=== PATIENT | female | born 1990 | race Caucasian/White ===

== ENCOUNTER 2019-06-11 11:14 | Outpatient (CLI) | payer OTHER | END 2019-06-11 23:59 | disposition home or self-care (01) | LOC: LAB 11:14 | PROVIDERS: ATTEND Obstetrics & Gynecology | DX: N93.9 Abnormal uterine and vaginal bleeding, unspecified (principal) | CPT/HCPCS: 36415; 84702 ==

== ENCOUNTER 2019-06-13 11:45 | Outpatient (CLI) | payer OTHER | END 2019-06-13 23:59 | disposition home or self-care (01) | LOC: LAB 11:45 | PROVIDERS: ATTEND Obstetrics & Gynecology | DX: N93.9 Abnormal uterine and vaginal bleeding, unspecified (principal) | CPT/HCPCS: 36415; 84702 ==

== ENCOUNTER → 2019-10-18 | Outpatient (CLI) | payer OTHER ==
[2019-10-18 07:37] LABS: BASOPHILS # (AUTO) 0.02 x10^3/uL (0-0.1); BASOPHILS % (AUTO) 0 % (0-1); EOSINOPHILS % (AUTO) 2 % (1-7); LYMPHOCYTES # (AUTO) 2.03 x10^3/uL (1-3.4); LYMPHOCYTES % (AUTO) 32 % (22-44); MD NO; MEAN CORPUSCULAR HEMOGLOBIN 29.4 pg (27.0-34.8); MEAN CORPUSCULAR HGB CONC 32.9 g/dL (32.4-35.8); MEAN CORPUSCULAR VOLUME 89.3 fL (80-100); MEAN PLATELET VOLUME 9.3 fL (7.4-10.4); MONOCYTES # (AUTO) 0.48 x10^3/uL (0.2-0.8); MONOCYTES % (AUTO) 8 % (2-9); NEUTROPHILS # (AUTO) 3.72 x10^3/uL (1.8-6.8); NEUTROPHILS % (AUTO) 59 % (42-75); PLATELET COUNT 187 x10^3/uL (130-400); RED BLOOD COUNT 4.39 x10^6/uL (3.82-5.3); RED CELL DISTRIBUTION WIDTH 13.4 % (9.6-15.2)
== END | disposition home or self-care (01) ==
LOC: LAB 07:19
PROVIDERS: ATTEND Obstetrics & Gynecology
DX: Z34.81 Encounter for supervision of other normal pregnancy, first trimester (principal); Z88.0 Allergy status to penicillin
CPT/HCPCS: 36415; 85025; 86592; 86762; 86850; 86900; 87086; 87340; 87389

== ENCOUNTER 2020-01-30 07:27 | Outpatient (CLI) | payer OTHER ==
[2020-01-30 08:53] LABS: BASOPHILS # (AUTO) 0.01 x10^3/uL (0-0.1); BASOPHILS % (AUTO) 0 % (0-1); EOSINOPHILS # (AUTO) 0.06 x10^3/uL (0-0.4); EOSINOPHILS % (AUTO) 1 % (1-7); LYMPHOCYTES # (AUTO) 2.08 x10^3/uL (1-3.4); LYMPHOCYTES % (AUTO) 24 % (22-44); MD NO; MEAN CORPUSCULAR HEMOGLOBIN 30.1 pg (27.0-34.8); MEAN CORPUSCULAR HGB CONC 33.6 g/dL (32.4-35.8); MEAN CORPUSCULAR VOLUME 89.5 fL (80-100); MEAN PLATELET VOLUME 9.6 fL (7.4-10.4); MONOCYTES # (AUTO) 0.67 x10^3/uL (0.2-0.8); MONOCYTES % (AUTO) 8 % (2-9); NEUTROPHILS # (AUTO) 5.74 x10^3/uL (1.8-6.8); NEUTROPHILS % (AUTO) 67 % (42-75); PLATELET COUNT 162 x10^3/uL (130-400); RED BLOOD COUNT 3.78 x10^6/uL (3.82-5.3); RED CELL DISTRIBUTION WIDTH 12.8 % (9.6-15.2)
== END 2020-01-30 23:59 | disposition home or self-care (01) ==
LOC: LAB 07:27
PROVIDERS: ATTEND Obstetrics & Gynecology
DX: Z34.82 Encounter for supervision of other normal pregnancy, second trimester (principal); Z3A.00 Weeks of gestation of pregnancy not specified
CPT/HCPCS: 36415; 82950; 85025; 86592

== ENCOUNTER 2020-03-08 23:40 | Outpatient (CLI) | payer OTHER ==
[~2020-03-08] VITALS: Ht 162.6 cm; Wt 68.2 kg
[2020-03-08] MEDS ORDERED: TERBUTALINE 1 MG/ML, 1ML ONE (23:53)
[2020-03-09] MEDS ORDERED: TERBUTALINE 1 MG/ML, 1ML SQ PRN
[2020-03-09 00:08] LABS: MICROSCOPIC INDICATED
[2020-03-09 00:12] VITALS: BP 131/83
[2020-03-09] MEDS ORDERED: PREN-59 PO (00:35)
== END 2020-03-09 00:50 | disposition home or self-care (01) ==
LOC: LDOP 23:40
PROVIDERS: ATTEND Obstetrics & Gynecology
DX: O62.9 Abnormality of forces of labor, unspecified (principal); Z3A.31 31 weeks gestation of pregnancy
CPT/HCPCS: 59025; 81001; 87086; 96372; 99211; J3105; G0463

== ENCOUNTER 2020-03-29 11:13 | Observation (INO) | payer OTHER ==
[~2020-03-29] VITALS: Ht 162.6 cm; Wt 72.0 kg
[~2020-03-29 11:13] MED LIST: PREN-59 PO
== END 2020-03-29 14:09 | disposition home or self-care (01) ==
LOC: LDOP 11:13 → LDIP 11:14
PROVIDERS: ADMIT Obstetrics & Gynecology Maternal & Fetal Medicine; ATTEND Obstetrics & Gynecology
DX: O9A.213 Injury, poisoning and certain other consequences of external causes complicating pregnancy, third trimester (principal); S39.91XA Unspecified injury of abdomen, initial encounter; O99.513 Diseases of the respiratory system complicating pregnancy, third trimester; O99.355 Diseases of the nervous system complicating the puerperium; J45.909 Unspecified asthma, uncomplicated; G43.909 Migraine, unspecified, not intractable, without status migrainosus; Z3A.33 33 weeks gestation of pregnancy; X58.XXXA Exposure to other specified factors, initial encounter; Y93.89 Activity, other specified; Y92.89 Other specified places as the place of occurrence of the external cause
CPT/HCPCS: 59025; 99211; G0378; G0463

== ENCOUNTER 2020-04-14 07:44 | Outpatient (CLI) | payer OTHER ==
[~2020-04-14] VITALS: Ht 162.6 cm; Wt 97.3 kg
[2020-04-14 07:50] VITALS: BP 124/76
[2020-04-14 08:52] LABS: MICROSCOPIC INDICATED
== END 2020-04-14 09:30 | disposition home or self-care (01) ==
LOC: LDOP 07:44
PROVIDERS: ATTEND Obstetrics & Gynecology
DX: O26.893 Other specified pregnancy related conditions, third trimester (principal); R10.9 Unspecified abdominal pain; Z3A.36 36 weeks gestation of pregnancy
CPT/HCPCS: 59025; 81001; 87086; 99211; G0463

== ENCOUNTER 2020-04-16 18:36 | Outpatient (CLI) | payer OTHER ==
[~2020-04-16] VITALS: Ht 162.6 cm; Wt 73.6 kg
== END 2020-04-16 22:58 | disposition home or self-care (01) ==
LOC: LDOP 18:36
PROVIDERS: ATTEND Obstetrics & Gynecology
DX: O26.893 Other specified pregnancy related conditions, third trimester (principal); R10.9 Unspecified abdominal pain; Z3A.36 36 weeks gestation of pregnancy
CPT/HCPCS: 59025; 99211; G0463

== ENCOUNTER 2020-04-17 10:44 | Outpatient (CLI) | payer OTHER ==
[~2020-04-17] VITALS: Ht 162.6 cm; Wt 73.6 kg
[2020-04-17 11:29] LABS: MICROSCOPIC INDICATED
[2020-04-17] MEDS ORDERED: MEPERIDINE/PF 50 MG/ML ONE (11:50)
[2020-04-17] MEDS ORDERED: MEPERIDINE/PF 50 MG/ML IM ONE (12:00)
[2020-04-17] MEDS ORDERED: PROMETHAZINE 25 MG/ML, 1ML IM ONE (12:00)
[2020-04-17 12:43] LABS: CREATININE,URINE RANDOM 46.1 mg/dL
[2020-04-20] MEDS ORDERED: IBUP-1222 PO (10:40)
[2020-04-20] MEDS ORDERED: DOCU-131 PO (10:41)
[2020-04-20] MEDS ORDERED: HYDR-3240 PO (10:41)
== END 2020-04-17 12:15 | disposition home or self-care (01) ==
LOC: LDOP 10:44
PROVIDERS: ATTEND Obstetrics & Gynecology
DX: O26.893 Other specified pregnancy related conditions, third trimester (principal); R10.9 Unspecified abdominal pain; Z3A.36 36 weeks gestation of pregnancy
CPT/HCPCS: 59025; 81001; 82570; 84156; 96372; 99211; J2175; J2550; G0463

== ENCOUNTER → 2021-07-07 | Outpatient (CLI) | payer OTHER ==
[~2021-07-07] MED LIST changes: +DOCU-131 PO; +HYDR-2214 PO; +IBUP-1222 PO
[2021-07-07 13:49] LABS: MEAN CORPUSCULAR HEMOGLOBIN 27.9 pg (27.0-34.8); MEAN CORPUSCULAR HGB CONC 33.1 g/dL (32.4-35.8); MEAN PLATELET VOLUME 9.6 fL (7.4-10.4); PLATELET COUNT 188 x10^3/uL (130-400); RED BLOOD COUNT 4.13 x10^6/uL (3.82-5.3)
== END | disposition home or self-care (01) ==
LOC: LAB 12:36
PROVIDERS: ATTEND Obstetrics & Gynecology
DX: Z34.80 Encounter for supervision of other normal pregnancy, unspecified trimester (principal)
CPT/HCPCS: 36415; 82306; 82950; 85027; 86592